=== PATIENT | female | born 1960 | race Caucasian/White ===

== ENCOUNTER → 2019-03-19 | Outpatient (CLI) | payer OTHER, SELFPAY ==
--- NOTE | 2019-03-19 | IMM_PTH ---
PATIENT: KEATON ELLISON LOC: [facility] U#:[id number] AGE/SX: 59/F ROOM: RE03/19/[address]: Dr. Keaton Kathleen MD : 1960 BED: DIS: 03/19/2019 SPEC #: [id number] RECD: 03/20/19 11:24 STATUS: KAREN REQ #: [id number] ELINA: 03/19/19 00:[address]: Keaton Kathleen DEPT: IMMUNOHISTOCHEMISTRY RECD BY: Letha Bowie ENTERED: 03/20/19 11:26 SP TYPE: IMMUNO OTHR DR: Dr. Herminio Peña, DO Herminio Peña Tissues: Right breast, NOS Procedures: BCL-2 (add) BCL-6 (add) CD10 (add) CD138 (add) CD20 (add) CD23 (add) CD3 (add) CD43 (add) CD45 (add) CD5 (add) CD79A (add) Vimentin (add) Pankeratin (initial) PHYSICIAN & [address] [address] SPECIMEN INFORMATION: Tissue Source: Right breast, stereotactic needle core biopsy Clinical Info: Right upper outer quadrant density Specimen Number: [id number] #1 CPT code: 62236, 05694 x12 METHODOLOGY: Deparaffinized sections of prefer/formalin-fixed tissue or PAP/DQ stained slides are incubated with monoclonal/polyclonal antibodies/oligonucleotide probes. Localization is made via biotin free immunoperoxidase method. Appropriate controls are performed and reacted as expected. Results on target cell population are indicated in the following table: RESULTS: ANTIBODY / CLONE RESULT Block 1 AE1-3 (AE1/AE3/PCK26) negative CD3 (PS1) positive CD5 (SP10) positive CD10 (56C6) negative CD20 (L26) positive CD23 (1B12) negative CD43 (L60) positive CD45 (RP2/18) positive CD79a (11E3) positive CD138 (B-A38) positive BCL-2 (bcl-2/100/D5) positive BCL-6 (YK052N/A8) positive Vimentin (V9) positive These tests were developed and their performance characteristics determined by [facility]. They may not have been cleared or approved by the [place]. Food and Drug Administration. The FDA has determined that such clearance or approval is not necessary. INTERPRETATION: Right breast, stereotactic needle core biopsy: Reactive lymphoid tissue. AM:esperanza 03/21/19 Comment: Appropriate polytypic zonal staining is noted.
--- NOTE | 2019-03-19 09:30 | BRBX_PTH ---
PATIENT: KEATON ELLISNO LOC: [facility] U#:[id number] AGE/SX: 59/F ROOM: RE03/19/[address]: Dr. Keaton Kathleen MD : 1960 BED: DIS: 03/19/2019 SPEC #: [id number] RECD: 03/19/19 10:58 STATUS: KAREN RUPAL #: [id number] ELINA: 03/19/19 09:[address]: Keaton Kathleen DEPT: SURGICAL PATHOLOGY RECD BY: Rome Denton ENTERED: 03/19/19 11:45 SP TYPE: BREAST BX OT DR: DO Herminio Nuno Tissues: Right breast, NOS Procedures: Surgery Specimen Level IV HEADER OPERATION: Right breast stereotactic needle core biopsy PRE-OP DIAGNOSIS: Right UOQ density TISSUE SUBMITTED: Right breast needle core biopsy ISCHEMIC TIME: 1 minute FIXATION TIME: 10 hours MICROSCOPIC DIAGNOSIS Right breast, upper outer quadrant density, needle core biopsy: Benign lymphoid tissue with reactive change. AM:esperanza 03/20/19 COMMENT Immunohistochemistry ([id number]) supports the above diagnosis. Case has been reviewed in consultation with Dr. Rushing who concurs with the above diagnosis. IDC:[email or web address] MICROSCOPIC DESCRIPTION Slides are reviewed. GROSS DESCRIPTION Received is one container labeled with the patient's name and not further designated. The specimen consists of multiple irregular and elongated fragments of hernandez-yellow fibroadipose tissue that in aggregate measure 7.5 x 6.5 x 0.6 cm. The entire specimen is submitted in five cassettes. / BALDO:esperanza 03/19/19 TC:5 CPT: 10725
--- NOTE | 2019-03-19 10:26 | PCM.OPRPT ---
Report of Operation Date of Procedure: 03/19/19 Pre-Operative Diagnosis: abnormal lesion seen on right breast mammograms Post-Operative Diagnosis: same Surgery/Procedure Performed:: right stereotactic breast biopsy Description of Surgical Findings:: probable enlarged benign lymph node - upper outer quadrant of right breast Type of Anesthesia:: Local - 1% xylocaine Specimen's removed: right breast tissue Estimated Blood Loss (mL): < 5 ml Description of Procedure: After informed consent was given, the patient was brought into the breast biopsy suite. Appropriate time out protocol was followed. She was then placed in the prone position on the stereotactic biopsy table. The patient?s right breast was then placed in the opening at the head of the table. A specialty food products supervisor compression mammogram was then obtained in the lateral view. The suspicious radiological lesion was then identified. Stereo pictures of the lesion were then taken for XYZ coordinates. The Mammotome biopsy stylus was then positioned where it would be entering into the patient?s breast. The skin at this site was then cleansed with a surgical skin preparation. The skin and subcutaneous tissues at this site were then infiltrated with 1% xylocaine. A small skin incision was made with an 11 blade scalpel. The biopsy stylus was then positioned into the patient?s breast at the proper coordinates of depth. Using the Mammotome vacuum-assist device, several core samples of breast tissue were obtained. A hemostatic marker clip was then placed into the biopsy cavity and a specialty food products supervisor film revealed that it was properly deployed. The patient was then placed in the supine position and pressure was applied to the breast until no active bleeding was noted. Steristrips were applied to reapproximate the skin. A unilateral mammogram in the CC and MLO view were then taken which revealed that the marker clip was in the same area as the previous suspicious lesion. The patient tolerated the procedure well and was discharged from the breast biopsy suite in good condition. - Complications none noted
== END | disposition home or self-care (01) ==
LOC: BIRAD 08:19
PROVIDERS: Family Provider Family Medicine; PCP Family Medicine; Referring Provider Surgery; Visit Provider Surgery
DX: N64.89 Other specified disorders of breast (principal); I10 Essential (primary) hypertension; E66.09 Other obesity due to excess calories; Z68.33 Body mass index [BMI] 33.0-33.9, adult; Z85.51 Personal history of malignant neoplasm of bladder; Z87.891 Personal history of nicotine dependence; Z79.82 Long term (current) use of aspirin; Z79.899 Other long term (current) drug therapy
CPT/HCPCS: 19081; 88305; 88341; 88342; J7050